=== PATIENT | male | born 1940 | race Caucasian/White ===

== ENCOUNTER 2016-10-13 08:52 | Inpatient (IN) | payer OTHER, MEDICARE ==
[2016-10-09 10:16] LABS: HEMOGLOBIN 14.3 gm/dL (14.0-18.0); MCH 35.2 pg (26.0-34.0); MCHC 34.8 g/dL (28.0-37.0); MCV 101.2 fL (80.0-100.0); RBC 4.05 mil/uL (4.50-6.00); RDW 13.8 % (10.5-14.5); WBC 3.3 thou/uL (4.0-11.0)
[2016-10-09 10:20] LABS: URINE BILIRUBIN NEGATIVE (Negative); URINE BLOOD NEGATIVE (Negative); URINE COLOR YELLOW; URINE GLUCOSE-RANDOM* NEGATIVE (Negative); URINE KETONES TRACE (Negative); URINE LEUKOCYTES-REFLEX NEGATIVE (Negative); URINE PROTEIN (DIPSTICK) NEGATIVE (Negative); URINE SPECIFIC GRAVITY 1.025 (1.003-1.035); URINE UROBILINOGEN 0.2 E.U./dl (0.2-1.0)
[2016-10-09 10:40] LABS: APTT 27.6 Seconds (24.5-32.8); PROTIME 10.1 Seconds (9.3-11.4)
[2016-10-09 10:41] LABS: CREATININE 0.8 mg/dL (0.6-1.3); POTASSIUM 3.9 mmol/L (3.5-5.1); TOTAL BILIRUBIN 0.5 mg/dL (<0.1-1.0); TOTAL PROTEIN 7.5 g/dL (6.4-8.2)
[~2016-10-13] VITALS: Ht 177.8 cm; Wt 84.8 kg
--- NOTE | ~2016-10-13 | S ---
[facility] [place] [address] SURGICAL PATH RPT PROCEDURE Name: SWAPNA WILSON Room #: 246-P DIS IN M.R.#: [id number] Admission: 10/14/16 Date of : 38 Discharge: 10/15/16 Report #: [id number] Path Case #: [id number] PATHOLOGY REPORT COLLECTION DATE: 10/14/2016 RECEIVED DATE: 10/14/2016 SUBMITTING PHYS: Dr. Swapna Escobedo OTHER PHYS: Dr. Julio De Guzman SPECIMEN(S) RECEIVED: A.Left carotid artery plaque * * * * * * * * * * * * FINAL DIAGNOSIS: Left carotid artery plaque: - Calcific atherosclerotic material, compatible with plaque. (IUV:csd; d/t: 10/16/2016) PATHOLOGIST: Eli Francois M.D. REPORT ELECTRONICALLY SIGNED BY: Eli Francois M.D. DATE/TIME: 10/16/2016 13:23 * * * * * * * * * * * * GROSS PATHOLOGY: The specimen is received in formalin labeled "Swapna Wilson, left carotid artery plaque". Received are multiple segments of white-alva rubbery tissue with focal areas of calcification measuring 1.8 x 1.8 x 0.5 cm in aggregate dimensions. The specimen is submitted representatively in cassette A1, following light decalcification. (CAA; 10/15/2016) CLINICAL HISTORY: Carotid artery stenosis INITIAL CPT CODE(S): A; 29683 Professional services performed by [facility] at [facility] [address] [place] [address] Technical services performed by [facility] at [address] [place] [id number]. [facility] [address] [place] [address] SURGICAL PATH RPT PROCEDURE Name: SWAPNA WILSON Room #: 246-P [facility] IN M.R.#: [id number] Admission: 10/14/16 Date of : 38 Discharge: 10/15/16 Report #: [id number] Path Case #: [id number] [address] PHONE: [phone] DIRECTOR: Cam Oliva M.D. * * * END OF REPORT * * *
--- NOTE | ~2016-10-13 | O ---
[facility] [place] [address] OPERATIVE REPORT Name: SWAPNA FARRELL Room #: 246-P [facility] IN M.R.#: [id number] Admission: 10/14/16 Attend Phys: Swapna Escobedo MD Discharge: 10/15/16 Date of : 39 Report #: [id number] THIS REPORT FOR: //name// CC: Julio Escobedo PREOPERATIVE DIAGNOSIS: Left carotid artery stenosis. POSTOPERATIVE DIAGNOSIS: Left carotid artery stenosis. OPERATION: Left carotid endarterectomy with patch closure. SURGEON: Swapna Escobedo M.D. REGULATORY INTERNSHIP: Maged. ANESTHESIA: General. INDICATIONS: The patient is a 76-year-old with 80% left internal carotid stenosis. This is a lesion at the bifurcation with a deep ulceration. The patient has a similar stenosis on the opposite side, similar and the fact that it is 80%, but it is located higher in the internal carotid, neither one of these lesions are asymptomatic at this time. FINDINGS AND TECHNIQUE: After general anesthesia was established, an oblique left neck incision was made. Common facial vein was divided. Common internal and external carotid arteries were identified and controlled, 10,000 units of heparin were given. Continuous electroencephalographic monitoring was performed during the operation. When the carotid vessels were occluded, there was some unilateral slowing; therefore, the carotid arteriotomy was made and an Inahara-Regalado shunt was placed. When the shunt was in place and flow reestablished through it, the EEG changes improved. The endarterectomy was performed without creating a distal flap. Neointima was inspected and all loose debris was removed. Tacking sutures were placed at the transition zone. The endarterectomy was closed with bovine pericardial patch and running Prolene. Prior to finishing the closure, the carotid vessels were backbled and the artery was irrigated with heparinized saline. Flow was established first through the external, then the internal carotid artery. When hemostasis was satisfactory, Protamine was given to reverse the heparin. Wound was irrigated with antibiotic solution. Vince drain was brought out through the bottom pole of the incision. The wound was closed in layers with [facility] [address] [place] [address] OPERATIVE REPORT Name: SWAPNA FARRELL Room #: 246-P [facility] IN M.R.#: [id number] Admission: 10/14/16 Attend Phys: Swapna Escobedo MD Discharge: 10/15/16 Date of : 39 Report #: [id number] Vicryl for the platysma and running Monocryl for the subcuticular layer, dressing was applied. The patient was taken to the recovery area in good condition where his neurologic progress was monitored. All counts reported as correct. By: 12 2106 Swapna Escobedo MD /nt
--- NOTE | ~2016-10-13 | H ---
[facility] [place] [address] HISTORY AND PHYSICAL Name: SWAPNA FARRELL Room #: 246-P [facility] IN M.R.#: [id number] Admission: 10/14/16 Attend Phys: Swapna Escobedo MD Discharge: 10/15/16 Date of : 39 Report #: [id number] THIS REPORT FOR: //name// For History and Physical, please see office documentation/handwritten note in the patient's medical record. By: 0000 1450 Swapna Escobedo MD /nt
[~2016-10-13 08:52] MED LIST: ALTACE10 M1 PO; ALTACE5 M1 PO; ASPIR 8181 MG PO; ASPIRIN PO; BAL B-1001 EACH PO; BYSTOLIC2.5 MG PO; CADUET 10 MG-81 EACH PO; COZAAR 25 MG TA25 M2 PO; LIALDA1.2 GM PO; LIPITOR80 MG PO; MULTI-VITAMIN1 EAC1 PO; MULTIPLE VITAM1 EAC3 PO; MULTIVITAMINS PO; NORVASC10 MG PO; NORVASC5 MG PO; PLAVIX 75 MG TA75 M1 PO; PLAVIX 75 MG TA75 MG PO; RANEXA 500 MG500 M1 PO; RANEXA1000 MG PO; RANEXA500 MG PO; VITAMIN B PO; VITAMIN B-150 MG PO; ZETIA10 MG PO
[2016-10-15 05:38] LABS: HEMATOCRIT 35.4 % (42.0-52.0); HEMOGLOBIN 12.4 gm/dL (14.0-18.0); MCH 35.8 pg (26.0-34.0); MCV 102.4 fL (80.0-100.0); RBC 3.46 mil/uL (4.50-6.00); RDW 13.8 % (10.5-14.5); WBC 5.8 thou/uL (4.0-11.0)
[2016-10-15 05:53] LABS: CALCIUM 8.3 mg/dL (8.5-10.1); CREATININE 0.8 mg/dL (0.6-1.3)
== END 2016-10-15 14:00 | disposition home or self-care (01) | DRG 39 ==
LOC: PRE 08:52 → OR 13:32 → EDSTATUS 13:33 → PRE 13:35 → ICU 10-14 05:17 → TBA 10-14 05:17 → PRE 10-14 08:14 → ICU 10-14 15:02
PROVIDERS: Physician Assistant; Surgery Vascular Surgery
PROC: 03CL0ZZ Extirpation of Matter from Left Internal Carotid Artery, Open Approach (ICD-10-PCS; principal; 2016-10-14)
PROC: 03HY33Z Insertion of Infusion Device into Upper Artery, Percutaneous Approach (ICD-10-PCS; 2016-10-14)
DX: I65.22 Occlusion and stenosis of left carotid artery (principal); I25.10 Atherosclerotic heart disease of native coronary artery without angina pectoris; I10 Essential (primary) hypertension; I25.5 Ischemic cardiomyopathy; Z79.82 Long term (current) use of aspirin; Z79.899 Other long term (current) drug therapy; Z88.8 Allergy status to other drugs, medicaments and biological substances
CPT/HCPCS: 10204; 48888; 50010; 50101; 50386; 50417; 50455; 51301; 51471; 51751; 52279; 54118; 56524; 56526; 56528; 56534; 62110; 62900; 65020; 65040; 65043; 70005

== ENCOUNTER 2016-12-25 14:30 | Inpatient (IN) | payer OTHER, MEDICARE ==
[~2016-12-25] VITALS: Ht 177.8 cm; Wt 83.0 kg
--- NOTE | ~2016-12-25 | O ---
[facility] [place] [address] OPERATIVE REPORT Name: BUDCHAYITO Room #: 150-6 ADM IN M.R.#: [id number] Admission: 01/01/17 Attend Phys: Swapna Escobedo MD Discharge: Date of : 39 Report #: [id number] THIS REPORT FOR: //name// CC: Julio Escobedo DATE OF SERVICE: 01/01/2017 PREOPERATIVE DIAGNOSIS: Right carotid artery stenosis. POSTOPERATIVE DIAGNOSIS: Right carotid artery stenosis. OPERATION: Right carotid endarterectomy with patch closure. SURGEON: Swapna Escobedo MD BELLMAN: Maged. ANESTHESIA: General. INDICATIONS: The patient is a 76-year-old with 80% right internal carotid stenosis. The patient also had an 80-90% left carotid stenosis. This was treated in October of this year. The patient had done well after that surgery and now appears for elective treatment of this severe, but asymptomatic stenosis. FINDINGS AND TECHNIQUE: After general anesthesia was established, an oblique right neck incision was made. Common internal and external carotid arteries were identified and controlled. 10,000 units of heparin were given. Continuous electroencephalographic monitoring was performed. When the carotid vessels were occluded, there was slowing in the right side, this was at the time when the pressure is relatively low. Pressure was elevated and we clamped again and changes were less dramatic. The arteriotomy was made. Endarterectomy was performed without creating a distal flap. Neointima was inspected and all loose debris was removed. Tacking sutures were placed at the transition zone. When the endarterectomy was felt to be satisfactory, the arteriotomy was closed with running Prolene and a thin walled pericardial patch. Prior to finishing the closure, the carotid vessels were backbled and the artery was irrigated with heparinized saline. Flow was established first through the external, then the internal carotid artery. Protamine was given to reverse the heparin. Hemostasis was satisfactory. The wound was irrigated with antibiotic solution and a drain was brought out through [facility] [address] [place] [address] OPERATIVE REPORT Name: SWAPNA FARRELL Room #: 150-6 [facility] IN ..#: [id number] Admission: 01/01/17 Attend Phys: Swapna Escobedo MD Discharge: Date of : 39 Report #: [id number] the bottom pole of the incision and the wound was closed in the usual fashion. The patient was taken to the recovery area where his neurologic progress was monitored. All counts were reported as correct. At the end of the case, the EKG had resumed a normal symmetric appearance. By: 1412 1510 Swapna Escobedo MD /nt
--- NOTE | ~2016-12-25 | S ---
[facility] [place] [address] SURGICAL PATH RPT PROCEDURE Name: SWAPNA WILSON Room #: 242-P DIS IN M.R.#: [id number] Admission: 01/01/17 Date of : 39 Discharge: 01/02/17 Report #: [id number] Path Case #: [id number] PATHOLOGY REPORT COLLECTION DATE: 01/01/2017 RECEIVED DATE: 01/01/2017 SUBMITTING PHYS: Dr. Swapna Escobedo OTHER PHYS: Dr. Julio De Guzman SPECIMEN(S) RECEIVED: A.Right carotid plaque * * * * * * * * * * * * FINAL DIAGNOSIS: Right carotid plaque, removal: - Calcific atherosclerosis along with myxoid changes. (IUV:mml; d/t: 01/05/2017) PATHOLOGIST: Eli Francois M.D. REPORT ELECTRONICALLY SIGNED BY: Eli Francois M.D. DATE/TIME: 01/05/2017 16:39 * * * * * * * * * * * * GROSS PATHOLOGY: The specimen is received in formalin labeled "Swapna Wilson, right carotid plaque". Received is a tubular segment of partially calcified light alva rubbery tissue measuring 3.8 cm in length and ranging in diameter from 0.5 to 1.1 cm. The specimen is submitted representatively in cassette A1, following decalcification. (CAA; 01/02/2017) CLINICAL HISTORY: Carotid stenosis INITIAL CPT CODE(S): A; 12428, 16463 Professional services performed by [facility] at [facility] [address], [place] [address] Technical services performed by [facility] at [address] [place] [address]. [facility] [address] [place] [address] SURGICAL PATH RPT PROCEDURE Name: SWAPNA WILSON Room #: 242-P [facility] IN M.R.#: [id number] Admission: 01/01/17 Date of : 39 Discharge: 01/02/17 Report #: [id number] Path Case #: [id number] [address] PHONE: [phone] DIRECTOR: Cam Oliva M.D. * * * END OF REPORT * * *
[2017-01-01] VITALS (7 sets, daily range): BP systolic 101–136; BP diastolic 40–69
[2017-01-01 08:01] LABS: HEMATOCRIT 40.6 % (42.0-52.0); HEMOGLOBIN 14.3 gm/dL (14.0-18.0); MCH 35.7 pg (26.0-34.0); MCHC 35.2 g/dL (28.0-37.0); MCV 101.3 fL (80.0-100.0); RBC 4.01 mil/uL (4.50-6.00); RDW 14.2 % (10.5-14.5)
[2017-01-01 08:09] LABS: CALCIUM 8.9 mg/dL (8.5-10.1); CREATININE 1.1 mg/dL (0.7-1.3); POTASSIUM 4.1 mmol/L (3.5-5.1)
[2017-01-01 08:14] LABS: APTT 28.9 Seconds (24.5-32.8); PROTIME 10.5 Seconds (9.3-11.4); TOTAL BILIRUBIN 0.8 mg/dL (<0.1-1.0); TOTAL PROTEIN 7.2 g/dL (6.4-8.2)
[2017-01-01 13:24] LABS: URINE BILIRUBIN NEGATIVE (Negative); URINE BLOOD NEGATIVE (Negative); URINE COLOR YELLOW; URINE GLUCOSE-RANDOM* NEGATIVE (Negative); URINE KETONES TRACE (Negative); URINE LEUKOCYTES-REFLEX 1+ (Negative); URINE PROTEIN (DIPSTICK) NEGATIVE (Negative); URINE SPECIFIC GRAVITY 1.025 (1.003-1.035); URINE UROBILINOGEN 0.2 E.U./dl (0.2-1.0)
[2017-01-01 13:31] LABS: SQUAMOUS None Seen /LPF (0-3); URINE WBC-REFLEX 6-15 Few /HPF (0-5)
[2017-01-01 13:32] LABS: CASTS None Seen /LPF (None Seen); CRYSTALS None Seen /LPF (None Seen); URINE RBC None Seen /HPF (0-2)
[2017-01-01 19:05] LABS: HEMATOCRIT 37.6 % (42.0-52.0); HEMOGLOBIN 13.1 gm/dL (14.0-18.0); MCH 35.6 pg (26.0-34.0); MCHC 34.8 g/dL (28.0-37.0); MCV 102.2 fL (80.0-100.0); RBC 3.68 mil/uL (4.50-6.00); RDW 14.1 % (10.5-14.5); WBC 8.6 thou/uL (4.0-11.0)
[2017-01-02] VITALS (32 sets, daily range): BP systolic 86–133; BP diastolic 45–67
[2017-01-02 05:24] LABS: HEMATOCRIT 34.7 % (42.0-52.0); HEMOGLOBIN 12.2 gm/dL (14.0-18.0); MCH 35.4 pg (26.0-34.0); MCHC 35.1 g/dL (28.0-37.0); MCV 101.1 fL (80.0-100.0); RBC 3.44 mil/uL (4.50-6.00); RDW 13.9 % (10.5-14.5); WBC 6.5 thou/uL (4.0-11.0)
[2017-01-02 05:30] LABS: CALCIUM 8.3 mg/dL (8.5-10.1); CREATININE 0.8 mg/dL (0.7-1.3); POTASSIUM 4.3 mmol/L (3.5-5.1)
== END 2017-01-02 15:25 | disposition home or self-care (01) | DRG 38 ==
LOC: PRE 14:30 → TBA 01-01 06:16 → ICU 01-01 06:16 → PRE 01-01 09:47 → ICU 01-01 17:29
PROVIDERS: Physician Assistant; Surgery Vascular Surgery
PROC: 03CK0ZZ Extirpation of Matter from Right Internal Carotid Artery, Open Approach (ICD-10-PCS; principal; 2017-01-01)
PROC: 03UK0KZ Supplement Right Internal Carotid Artery with Nonautologous Tissue Substitute, Open Approach (ICD-10-PCS; principal; 2017-01-01)
DX: I65.21 Occlusion and stenosis of right carotid artery (principal); N17.9 Acute kidney failure, unspecified; I25.10 Atherosclerotic heart disease of native coronary artery without angina pectoris; I10 Essential (primary) hypertension; Z95.1 Presence of aortocoronary bypass graft; Z88.8 Allergy status to other drugs, medicaments and biological substances; Z98.62 Peripheral vascular angioplasty status; Z79.82 Long term (current) use of aspirin; Z79.899 Other long term (current) drug therapy
CPT/HCPCS: 10078; 48888; 50010; 50101; 50386; 50417; 50455; 51301; 51751; 52279; 54118; 56524; 56526; 56528; 56534; 62110; 62900; 65020; 65040; 65043; 70005

== ENCOUNTER → 2018-07-23 | Outpatient (CLI) | payer OTHER, MEDICARE ==
[~2018-07-23] VITALS: Ht 177.8 cm; Wt 79.4 kg
[~2018-07-23] MED LIST changes: +BYSTOLIC 5 MG5 M1 PO
--- NOTE | ~2018-07-23 | CATHLAB ---
[facility] [place] [address] INVASIVE PROCEDURE REPORT Name: BUDCHAYITO Room #: REG Warren#: [id number] Admission: 07/23/18 Attend Phys: Gerardo Howell, Discharge: Date of : 39 Date of Service: 07/23/18 1725 Report #: [id number] THIS REPORT FOR: //name// APPROVED REPORT Study performed: 07/23/2018 08:34:58 Patient Details Patient Status: Out-Patient Room #: The patient is a 77 year-old male Event Personnel Gerardo Howell Collections Attorney, Yesenia Rosa RN RN, Maria L Rasmussen Sandifer, David Monitor Procedures Performed Left Heart Cath Coronaries, Bypass Grafts 3366232 LHCCORCABG Supravalvular Aortography Injection 4008966 ISVA , Aortogram Indication Chest pain Procedure Narrative The Right Groin^ was infiltrated with 1% Lidocaine subcutaneous anesthesia. A PINNACLE 6FR Sheath #[id number] sheath was inserted into the RFA^. Coronary angiography was performed using coronary diagnostic catheters. The right coronary system was accessed and visualized with a JR4 catheter. The left coronary system was accessed and visualized with a JL4 catheter. The left ventricle was accessed and visualized with a PI6FR PIGTAIL 145 ANGLED #[id number] catheter. Left ventricular/Aortic Valve gradient assessed via catheter pullback. Left ventriculogram was performed in 30 degree projection. An aortogram of the ascending aorta was performed. Closure device was deployed with a Fr . Hemostasis was obtained with manual pressure following sheath removal without any complications. There was no hematoma. Intraoperative Conscious Sedation Sedation start time: 9.15 Case end Time: 10.15 Fentanyl 50 mcg Versed 2 mg Dose: DAP 6560 cGycm2 702 mGy Contrast Type and Amount: Omnipaque 170 ml [facility] [place] [place] [address] INVASIVE PROCEDURE REPORT Name: SWAPNA FARRELL Room #: BERYL Kelley#: [id number] Admission: 07/23/18 Attend Phys: Gerardo Howell, Discharge: Date of : 39 Date of Service: 07/23/18 1725 Report #: [id number] Hemodynamics The aortic pressure is 158/67 mmHg with a mean of 78 mmHg. The left ventricular pressure is 173/9 mmHg with a mean of mmHg. The left ventricular end diastolic pressure is 20 mmHg. There was no gradient across the aortic valve upon pullback. Pullback from the left ventricle to the aorta revealed no gradient across the aortic valve. Conclusion #1 normal left ventricular size with ejection fraction lower limits of normal EF 50%. Mild hypokinesis of the inferior base #2 left main is large giving rise to the circumflex artery the LAD occludes just off of the left main. There is a 20% mid left main lesion #3 LAD occluded ostially off of the left main #4 [place] circumflex in the AV groove is patent. And proximal lesion after a previously placed stent filling distal OM. The proximal and mid OM's are occluded #5 HINES to LAD is intact the HINES graft is widely patent the anastomosis is mild disease. Diffuse disease noted in the LAD is retrograde filling diagonal and septal system. No occlusive disease for intervention #6 [place] right coronary artery occluded #7 SVG to PDA occluded #8 SVG to OM eccentric proximal 50-60% lesion focal and then some degenerative valvular filling defects no occlusive disease filling a relatively small OM branch. No indication for intervention This vein graft may give rise to a small diagonal branch may of been a sequential graft. #9 supravalvular aortogram was performed. There appears to be at least a moderate ostial narrowing of the subclavian vessel which gives rise to the HINES. Will obtain noninvasive Doppler data. Recommendations and plan continue aggressive risk factor modification. We will review the Doppler on the ostium of the subclavian. Possible intervention. I don't see evidence for coronary intervention to be beneficial here. <ELECTRONICALLY SIGNED> By: Gerardo Howell MD, FACC 07/23/181724 24 24 Gerardo Howell MD, FACC /INF
[2018-07-23 08:30] LABS: HEMOGLOBIN 14.2 gm/dL (14.0-18.0); MCH 37.2 pg (26.0-34.0); MCHC 34.7 g/dL (28.0-37.0); MCV 107.1 fL (80.0-100.0); RBC 3.82 mil/uL (4.50-6.00); RDW 15.2 % (10.5-14.5); WBC 5.3 thou/uL (4.0-11.0)
[2018-07-23 08:37] LABS: CALCIUM 9.6 mg/dL (8.5-10.1); POTASSIUM 4.6 mmol/L (3.5-5.1)
== END | disposition home or self-care (01) ==
LOC: CATH 08:06
PROVIDERS: Internal Medicine Cardiovascular Disease
DX: I25.10 Atherosclerotic heart disease of native coronary artery without angina pectoris (principal); I65.29 Occlusion and stenosis of unspecified carotid artery; I10 Essential (primary) hypertension; H91.8X3 Other specified hearing loss, bilateral; E78.5 Hyperlipidemia, unspecified; Z86.79 Personal history of other diseases of the circulatory system; Z95.1 Presence of aortocoronary bypass graft; Z88.8 Allergy status to other drugs, medicaments and biological substances; Z79.899 Other long term (current) drug therapy; Z98.890 Other specified postprocedural states; Z95.5 Presence of coronary angioplasty implant and graft; Z98.42 Cataract extraction status, left eye; Z98.41 Cataract extraction status, right eye; Z87.19 Personal history of other diseases of the digestive system; Z79.01 Long term (current) use of anticoagulants; Z87.891 Personal history of nicotine dependence

== ENCOUNTER → 2019-08-18 | Outpatient (CLI) | payer OTHER, MEDICARE | LOC: SJCVC 14:43 | DX: I45.2 Bifascicular block (principal); R00.1 Bradycardia, unspecified; I25.810 Atherosclerosis of coronary artery bypass graft(s) without angina pectoris; E78.00 Pure hypercholesterolemia, unspecified; I42.9 Cardiomyopathy, unspecified; I10 Essential (primary) hypertension; I35.0 Nonrheumatic aortic (valve) stenosis; Z95.1 Presence of aortocoronary bypass graft; Z79.899 Other long term (current) drug therapy; Z87.891 Personal history of nicotine dependence ==

== ENCOUNTER → 2019-11-02 | Outpatient (CLI) | payer OTHER, MEDICARE | LOC: SJCVCIMAG 08:03 | DX: I73.9 Peripheral vascular disease, unspecified (principal); I25.119 Atherosclerotic heart disease of native coronary artery with unspecified angina pectoris; I77.1 Stricture of artery; E78.00 Pure hypercholesterolemia, unspecified; I10 Essential (primary) hypertension; K55.1 Chronic vascular disorders of intestine; Z95.5 Presence of coronary angioplasty implant and graft; Z95.1 Presence of aortocoronary bypass graft; Z79.899 Other long term (current) drug therapy; Z87.891 Personal history of nicotine dependence ==

== ENCOUNTER → 2019-11-08 | Outpatient (CLI) | payer OTHER, MEDICARE ==
[~2019-11-08] VITALS: Ht 177.8 cm; Wt 77.1 kg
[~2019-11-08] MED LIST changes: +MERCAPTOPURINE50 MG PO
[2019-11-08 09:52] LABS: HEMATOCRIT 38.3 % (42.0-52.0); HEMOGLOBIN 13.2 gm/dL (14.0-18.0); MCH 36.6 pg (26.0-34.0); MCHC 34.4 g/dL (28.0-37.0); MCV 106.2 fL (80.0-100.0); RBC 3.6 mil/uL (4.50-6.00); RDW 16.3 % (10.5-14.5); WBC 5.6 thou/uL (4.0-11.0)
[2019-11-08 09:54] VITALS: BP 180/67
[2019-11-08 10:10] LABS: CALCIUM 9.4 mg/dL (8.5-10.1); POTASSIUM 4.2 mmol/L (3.5-5.1)
--- NOTE | 2019-11-10 16:52 | CATHLAB ---
[facility] [place] [address] INVASIVE PROCEDURE REPORT Name: BUDCHAYITO Room #: REG ZIYAD ArredondoMicaela#: [id number] Admission: 11/08/19 Attend Phys: Gerardo Howell MD, Discharge: Date of : 39 Report #: [id number] THIS REPORT FOR: cc: Julio De Guzman James A. DO Mancuso, Gerald M. MD [facility] ~ APPROVED REPORT Study performed: 11/08/2019 13:13:32 Patient Details Patient Status: Out-Patient Room #: The patient is a 79 year-old male Event Personnel Gerardo Howell Finish Specialist, Cassi Mclaughlin RN RN, Domingo Hernandez RTR Scrub, Domingo Hernandez RTR Scrub Procedures Performed Art Access - R femoral artery* Left Heart Cath Coronaries, Bypass Grafts [id number] LHCCORCABG Hemostasis w/ Mynx Indication Chest pain Procedure Narrative A SHEATH BRITE-TIP 6F X 11CM (619561) sheath was inserted into the RFA^. Coronary angiography was performed using coronary diagnostic catheters. The right coronary system was accessed and visualized with a JR4 catheter. The left coronary system was accessed and visualized with a JL5 catheter. The left ventricle was accessed and visualized with a pigtail catheter. Left ventricular/Aortic Valve gradient assessed via catheter pullback. Left ventriculogram was performed in 30 degree projection. Closure device was deployed with a 6 Fr MYNXGRIP 6/7F #[id number]. The patient tolerated the procedure well and there were no complications associated with the procedure. There was no hematoma. Intraoperative Conscious Sedation Sedation start time: 11:19 Case end Time: 14:15 Fentanyl 100 mcg Versed 2.0 mg Conscious sedation is a total for lower extremity runoff and left heart cath procedures. [facility] [address] [place] [address] INVASIVE PROCEDURE REPORT Name: SWAPNA FARRELL Room #: BERYL Kelley#: [id number] Admission: 11/08/19 Attend Phys: Gerardo Howell, Discharge: Date of : 39 Report #: [id number] Fluoro time and dose is a total for lower extremity runoff and left heart cath procedures. Contrast is a total for lower extremity runoff and left heart cath procedures. Omnipaque - 110ml Fluoro Time: 25.44 minutes Dose: DAP 37463.70 cGycm2 2108 mGy Contrast Type and Amount: Visipaque 176 ml Hemodynamics The aortic pressure is 163/58 mmHg with a mean of 99 mmHg. The left ventricular pressure is 167/3 mmHg with a mean of mmHg. The left ventricular end diastolic pressure is 21 mmHg. PCI Technique Lesion Percutaneous coronary intervention was performed on the Prox popliteal. PCI Technique Lesion 2 Percutaneous Coronary Intervention was performed on the Ostial sup femoral. Conclusion #1. Normal left jugular size with subtle inferior basilar hypokinesis EF 50 to 55% #2 a HINES to LAD is intact with mild irregularities 30 to 40% anastomotic lesion at the LAD insertion with diffuse distal disease in a small vessel. Retrograde filling of a small diagonal system is noted. The LAD does wrap the apex. #3 [place] right coronary artery occluded #4 SVG to PDA occluded #5 multiple eccentric calcified lesions in the proximal and mid vein graft to OM1 OM 2 briskly filling relatively small marginal system. #6 the left main is mildly disease the LAD is occluded off the left main. #7 circumflex OM the first and second OM branches are occluded 3040% irregularities in the proximal circumflex calcified this fills a distal circumflex and an AV groove may be consistent with a anatomically codominant system. No occlusive disease with exception of the occlusion of the first 2 OM's. This fills a portion of the inferior wall. Recommendations and plan: Continue aggressive risk factor modification. There is progression in the vein graft to OM1 and OM 2. I would like and will obtain nuclear correlation in the next few [address] [address] INVASIVE PROCEDURE REPORT Name: SWAPNA FARRELL Room #: REG SAAD Kelley#: [id number] Admission: 11/08/19 Attend Phys: Gerardo Howell, Discharge: Date of : 39 Report #: [id number] months to follow this current anatomy. Patient status post peripheral vascular intervention see Dr. Carreon's dictation from today. <ELECTRONICALLY SIGNED> By: Gerardo Howell MD, FACC 11/10/191649 49 49 Gerardo Howell MD, FACC /INF
--- NOTE | 2019-11-11 12:25 | EKG ---
[facility] [place] [address] ELECTROCARDIOGRAM REPORT Name: SWAPNA FARRELL [id number] Admission: 11/08/19 Attend Phys: Gerardo Howell MD, Discharge: Date of : 39 Report #: [id number] THIS REPORT FOR: cc: Julio De Guzman James A. DO Lundgren, Craig H. MD [facility] ~ THIS REPORT FOR: //name// 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 Tight: VAL : 1940 Requested By: Gerardo Howell Order Number: [id number] MD: Gary Hayes Measurements Intervals [place] Rate: 58 P: 30 [place]: 223 QRS: -54 QRSD: 156 T: 62 QT: 534 QTc: 525 Interpretive Statements Sinus rhythm Atrial premature complexes Prolonged [place] interval RBBB and LAFB Compared to ECG 11/20/2009 08:23:30 Atrial premature complex(es) now present First degree AV block now present Left anterior fascicular block now present Right bundle-branch block now present Sinus bradycardia no longer present Electronically Signed On 11-08-2019 16:22:42 CDT by Gary Hayes [email or web address] <ELECTRONICALLY SIGNED> By: Gary Hayes MD, [facility] 11/08/19 1622 Gary Hayes MD, [facility] /EPI
== END | disposition home or self-care (01) ==
LOC: CATH 09:11
PROVIDERS: Internal Medicine Cardiovascular Disease
DX: R07.9 Chest pain, unspecified (principal); I25.810 Atherosclerosis of coronary artery bypass graft(s) without angina pectoris; I70.212 Atherosclerosis of native arteries of extremities with intermittent claudication, left leg; I70.248 Atherosclerosis of native arteries of left leg with ulceration of other part of lower leg; L97.909 Non-pressure chronic ulcer of unspecified part of unspecified lower leg with unspecified severity; K55.1 Chronic vascular disorders of intestine; I70.1 Atherosclerosis of renal artery; I10 Essential (primary) hypertension; I25.10 Atherosclerotic heart disease of native coronary artery without angina pectoris; E78.5 Hyperlipidemia, unspecified; I25.2 Old myocardial infarction; Z98.890 Other specified postprocedural states; Z79.899 Other long term (current) drug therapy; Z98.41 Cataract extraction status, right eye; Z87.891 Personal history of nicotine dependence; Z98.42 Cataract extraction status, left eye; Z88.8 Allergy status to other drugs, medicaments and biological substances

== ENCOUNTER → 2020-02-09 | Outpatient (CLI) | payer OTHER, MEDICARE | LOC: SJCVCIMAG 10:13 | PROVIDERS: ATTEND Internal Medicine Cardiovascular Disease | DX: I65.23 Occlusion and stenosis of bilateral carotid arteries (principal); I73.9 Peripheral vascular disease, unspecified; I49.3 Ventricular premature depolarization; I49.1 Atrial premature depolarization; I35.0 Nonrheumatic aortic (valve) stenosis; I25.118 Atherosclerotic heart disease of native coronary artery with other forms of angina pectoris; E78.00 Pure hypercholesterolemia, unspecified; K55.1 Chronic vascular disorders of intestine; Z95.1 Presence of aortocoronary bypass graft; Z79.899 Other long term (current) drug therapy; Z87.891 Personal history of nicotine dependence ==

== ENCOUNTER → 2020-05-16 | Outpatient (CLI) | payer OTHER, MEDICARE | LOC: SJCVCIMAG 08:51 | PROVIDERS: ATTEND Internal Medicine Cardiovascular Disease | DX: I08.2 Rheumatic disorders of both aortic and tricuspid valves (principal); R94.31 Abnormal electrocardiogram [ECG] [EKG]; I44.7 Left bundle-branch block, unspecified; I25.110 Atherosclerotic heart disease of native coronary artery with unstable angina pectoris; I10 Essential (primary) hypertension; E78.00 Pure hypercholesterolemia, unspecified; I73.9 Peripheral vascular disease, unspecified; K51.919 Ulcerative colitis, unspecified with unspecified complications; K55.1 Chronic vascular disorders of intestine; I77.9 Disorder of arteries and arterioles, unspecified; I25.10 Atherosclerotic heart disease of native coronary artery without angina pectoris; Z95.1 Presence of aortocoronary bypass graft; Z79.899 Other long term (current) drug therapy; Z87.891 Personal history of nicotine dependence ==

== ENCOUNTER → 2020-05-29 | Outpatient (CLI) | payer OTHER, MEDICARE ==
[~2020-05-29] VITALS: Ht 177.8 cm; Wt 74.8 kg
[2020-05-29 06:58] VITALS: BP 133/52
--- NOTE | 2020-05-29 12:49 | CATHLAB ---
[facility] [place] [address] INVASIVE PROCEDURE REPORT Name: SWAPNA FARRELL Room #: REG ZIYAD ArredondoMicaela#: [id number] Admission: 05/29/20 Attend Phys: Gerardo Howell MD, Discharge: Date of : 39 Report #: [id number] THIS REPORT FOR: cc: Julio De Guzman James A. DO Mancuso, Gerald M. MD [facility] ~ APPROVED REPORT Study performed: 05/29/2020 07:36:13 Patient Details Patient Status: Out-Patient Room #: The patient is a 79 year-old male Event Personnel Gerardo Howell Supervisor Rides, Jeni Adhikari RTR Monitor, Tanya Adan RN RN, Sander Garza RTR Scrub, Monik Dee RTR, NIGHT COURT MAGISTRATE Scrub, Cassi Bower RN painting manager Performed Art Access - R femoral artery* Left Heart Cath Coronaries, Bypass Grafts 8931491 LHCCORCABG Hemostasis w/ Mynx 53852 Initial Mod Sed Same Phys/QHP Gr5y 839235 87431 Mod Sed Same Phys/QHP Ea 827519 Procedure Narrative The Right Groin^ was infiltrated with 1% Lidocaine subcutaneous anesthesia. A PINNACLE 6FR Sheath #925061 sheath was inserted into the RFA^. Coronary angiography was performed using coronary diagnostic catheters. The right coronary system was accessed and visualized with a JR4 catheter. Closure device was deployed with a Fr MYNX CONTROL 6F/7F L#[id number]. The patient tolerated the procedure well and there were no complications associated with the procedure. There was no hematoma. Intraoperative Conscious Sedation Sedation start time: 8:34 Case end Time: 9:49 Fentanyl 75 mcg Versed 1 mg Fluoro Time: 17.80 minutes Dose: DAP 61240.70 cGycm2 1888 mGy Contrast Type and Amount: Omnipaque 120 ml [facility] [place] [address] INVASIVE PROCEDURE REPORT Name: SWAPNA FARRELL Room #: REG [facility]#: [id number] Admission: 05/29/20 Attend Phys: Gerardo Howell, Discharge: Date of : 39 Report #: [id number] Hemodynamics The aortic pressure is 151/53 mmHg with a mean of 89 mmHg. Conclusion 1. Left main mildly disease giving rise to an occluded dn. #2 the HINES to LAD is widely patent it fills the LAD both distally and retrograde also diagonal system which is mildly diseased. Brisk flow was noted #3 the [place] circumflex OM branches are occluded #4 there is an SVG to the OM1 OM 2. This has corkscrewing calcified proximal lesions and mid lesions also significantly calcified. With a previous stent widely patent and SHASHA grade III flow although may be in encroached upon by these proximal calcified lesions. #5 there was an attempt to cross this proximal graft with these corkscrew calcified lesions unsuccessfully was able to wire this vessel but could not deliver even small balloon. We will continue to treat this medically. #6 the [place] right is occluded #7 the SVG to the PDA is occluded Recommendations and plan: Continue aggressive risk factor modification. <ELECTRONICALLY SIGNED> By: Gerardo Howell MD, FACC 05/29/20 1249 48 1249 Gerardo Howell MD, FACC /INF
== END | disposition home or self-care (01) ==
LOC: CATH 06:23
PROVIDERS: ATTEND Internal Medicine Cardiovascular Disease
DX: I25.810 Atherosclerosis of coronary artery bypass graft(s) without angina pectoris (principal); I10 Essential (primary) hypertension; I25.5 Ischemic cardiomyopathy; I25.2 Old myocardial infarction; E78.5 Hyperlipidemia, unspecified; I73.9 Peripheral vascular disease, unspecified; Z95.1 Presence of aortocoronary bypass graft; Z98.890 Other specified postprocedural states; Z79.899 Other long term (current) drug therapy; Z87.891 Personal history of nicotine dependence; Z98.41 Cataract extraction status, right eye; Z98.42 Cataract extraction status, left eye; Z88.8 Allergy status to other drugs, medicaments and biological substances

== ENCOUNTER → 2020-08-21 | Outpatient (CLI) | payer OTHER, MEDICARE | LOC: SJCVCIMAG 10:19 | PROVIDERS: ATTEND Nuclear Medicine Nuclear Cardiology | DX: R94.31 Abnormal electrocardiogram [ECG] [EKG] (principal); R00.1 Bradycardia, unspecified; I45.4 Nonspecific intraventricular block; I25.119 Atherosclerotic heart disease of native coronary artery with unspecified angina pectoris; I35.0 Nonrheumatic aortic (valve) stenosis; I25.5 Ischemic cardiomyopathy; I73.9 Peripheral vascular disease, unspecified; K55.1 Chronic vascular disorders of intestine; I65.23 Occlusion and stenosis of bilateral carotid arteries; I10 Essential (primary) hypertension; Z95.1 Presence of aortocoronary bypass graft; Z87.891 Personal history of nicotine dependence; Z72.89 Other problems related to lifestyle; Z79.899 Other long term (current) drug therapy ==

== ENCOUNTER 2020-08-27 06:31 | Observation (INO) | payer OTHER, MEDICARE ==
[2020-08-27] VITALS (7 sets, daily range): BP systolic 102–170; BP diastolic 53–90
[~2020-08-27] VITALS: Ht 177.8 cm; Wt 74.8 kg
[2020-08-27] MEDS ORDERED: ASA81BEC PO (07:32)
--- NOTE | 2020-08-27 13:56 | NUR ---
PATIENT ARRIVED AT 1140. PATIENT SETTLED INTO BED WITH HELP OF ADVERTISING DIRECTOR NURSE. LT GROIN ASSESSED PER PROTOCOL AND VS TAKEN PER PROTOCOL. WITH PATIENT AND SHE WAS EDUCATED ON PLAN OF CARE.
--- NOTE | 2020-08-27 14:00 | EKG ---
[address] [place] [address] ELECTROCARDIOGRAM REPORT Name: SWAPNA FARRELL Room #: 209- ADM IN M.R.#: [id number] Admission: 08/27/20 Attend Phys: Sunday Haas MD Discharge: Date of : 39 Report #: [id number] [facility] Test Date: 2020-08-27 Test Time: 13:06:10 Pat Name: SWAPNA FARRELL Department: Room: 209 Gender: M Cement Contractor: vishnu : 1940 Requested By: Sunday Haas Order Number: [id number] : Fred Gutierrez Measurements Intervals [place] Rate: 45 P: 15 [place]: 224 QRS: -45 QRSD: 140 T: 75 QT: 511 QTc: 443 Interpretive Statements Sinus bradycardia Atrial premature complex Borderline prolonged [place] interval Compared to ECG 11/08/2019 09:33:28 Sinus rhythm no longer present Left anterior fascicular block no longer present Right bundle-branch block no longer present Electronically Signed On 08-27-2020 13:59:49 [employer] by Fred Gutierrez [email or web address] <ELECTRONICALLY SIGNED> By: Fred Gutierrez MD, FAC 08/27/20 1359 1306 1306 Fred Gutierrez MD, [facility] /EPI
--- NOTE | 2020-08-27 16:38 | CATHLAB ---
[facility] [place] [address] INVASIVE PROCEDURE REPORT Name: BUDSWAPNA Gutierres Room #: 209-P ADM IN .R.#: [id number] Admission: 08/27/20 Attend Phys: Sunday Haas MD Discharge: Date of : 38 Report #: [id number] THIS REPORT FOR: cc: Julio De Guzman James A. DO Park, Jin S. MD ~ APPROVED REPORT Study performed: 08/27/2020 07:41:43 Patient Details Patient Status: Out-Patient Room #: The patient is a 79 year-old male Event Personnel Sunday Haas Paperhanger Apprentice, Tanya Adan RN RN, Monik Dee RTR, CERTIFIED TEACHER ASSISTANT Monitor, Sabra Travis Scrub Procedures Performed Art Access - L femoral artery* Coronaries Angiography and Bypass Grafts 063449 CORCABG ROSA MARIA Revasc Graft Single OM C9604 SVGREVSING Atherectomy w/wo Plasty Sgl OM 1 [id number] ATHSINGLE Hemostasis w/ Mynx 95387 Initial Mod Sed Same Phys/QHP Gr5y [id number] 75364 Mod Sed Same Phys/QHP Ea 291366 Indication Dyspnea, Unstable angina , Positive stress test, Chest pain Risk Factors Peripheral Vascular Disease, Hypercholesterolemia, Coronary Artery DiseaseHypertension Previous Procedures/Diagnoses Previous CABGPrevious PCI, Previous Vascular Surgery Procedure Narrative The Right Groin^ was infiltrated with 1% Lidocaine subcutaneous anesthesia. A PINNACLE 6FR Sheath #[id number] sheath was inserted into the LFA^. Coronary angiography was performed using coronary diagnostic catheters. The right coronary system was accessed and visualized with a JR4 catheter. The left coronary system was accessed and visualized with a JL4 catheter. Pre-demployment femoral angiogram was performed . Closure device was deployed with a 6 Fr MYNXGRIP 6/7F #[id number]. The patient tolerated the procedure well and there were no [facility] [address] [place] [address] INVASIVE PROCEDURE REPORT Name: SWAPNA FARRELL Room #: 209-P [facility] IN ..#: [id number] Admission: 08/27/20 Attend Phys: Sunday Haas MD Discharge: Date of : 38 Report #: [id number] complications associated with the procedure. There was no hematoma. The HINES was accessed and visualized with the 6F IM. The SVG to OM1/OM2 was accessed and visualized with the 6F LCB. Intraoperative Conscious Sedation Sedation start time: 08:32 Case end Time: 11:22 Fentanyl 200 mcg Versed 3 mg Fluoro Time: 50.42 minutes Dose: DAP 00990.70 cGycm2 4207 mGy Contrast Type and Amount: Omnipaque 315 ml Diagnostic Cath Left Main There is a patent stent in the left main with mild restenosis. LAD There is a total occlusion of the ostial LAD. There is a patent HINES graft with a end-to-side anastomosis to the mid LAD. After the anastomosis, there is both retrograde and antegrade flow in the LAD with mild disease in the distal LAD segment. Diagonal 1 This is filled via retrograde blood flow from the HINES to the LAD. Circumflex There is a patent stent in the ostial LAD. There is moderate disease in the proximal segment. This vessel fills the distal marginals. OM1 This is occluded at the ostium. Right Coronary The RCA is occluded. R PDA The SVG to the PDA is occluded. Left Ventriculography Left Ventriculography was not performed. Ejection Fraction was 50% based off patient's Echocardiogram. Hemodynamics The aortic pressure is 155/62 mmHg with a mean of 90 mmHg. PCI Technique Lesion Percutaneous coronary intervention was performed on the Prox 08/05 of the saphenous vein graft to OM1. The lesion stenosis prior to intervention was 95% with SHASHA 3 flow. A LAUNCHER 6FR AL75 #[id number] Guide Catheter was used to engage the ostium. A Luge Wire .014 x 182CM #[id number] Interventional Guidewire was used to cross the lesion. BALLOON DILATION [facility] [address] [place] [address] INVASIVE PROCEDURE REPORT Name: SWAPNA FARRELL Room #: 209-P [facility] IN M.R.#: [id number] Admission: 08/27/20 Attend Phys: Sunday Haas MD Discharge: Date of : 38 Report #: [id number] A Balloon catheter Euphora RX 2.0 x 15 #[id number] was inserted and inflated up to 14.00atm for 15seconds. A balloon catheter Euphora 1.5 x 12 was inserted and inflated up to 18 artem for 12 seconds STENT DEPLOYMENT A drug-eluting stent RESOLUTE CIPRIANO RX 3.0 X 12 #[id number] was inserted and inflated up to 12atm for 18seconds. The stent was deployed in the proximal segment of the SVG. The stent was postdilated with a 3.0 mm noncompliant balloon, up to 18 artem. POST STENT DEPLOYMENT BALLOON DILATION A Balloon catheter TREK NC RX 3.0 X 8 #[id number] was inserted and inflated up to 18.00atm for 15seconds. A balloon catheter NC Trek RX 2.50 x 12 was inserted and inflated up to 20 artem for 28 seconds. A balloon catheter NC Trek RX 2.75 x 12 was inserted and inflated up to 18 artem for 29 seconds. A balloon catheter NC Trek RX 3.0 x 8 was inserted to post dilate the 3.0 x 12 Resolute Cipriano RX. Inflated up to 20 artem for 21 seconds. Additional Inflation: 18 artem for 15 seconds. Final angiography reveals 10 % stenosis with SHASHA 3 flow. COMMENTS 0.9 Coronary Laser was inserted and 3 runs were performed at 50mj/mm2 for 50 pulses/sec in the proximal SVG to OM1/OM2. 0.9 Coronary Laser was inserted and 3 runs were performed at 50mj/mm2 for 60 pulses/sec in the proximal to mid SVG to OM1/OM2. PCI Technique Lesion 2 Percutaneous Coronary Intervention was performed on the Mid 08/05. A LAUNCHER 6FR AL75 #[id number] Guide Catheter was used to engage the ostium. A Luge Wire .014 x 182CM #[id number] Interventional Guidewire was used to cross the lesion. Balloon Dilation A Balloon catheter Euphora RX 2.0 x 15 #[id number] was inserted and inflated up to 15.00atm for 17seconds. A balloon catheter 2.0 x 12 Euphora RX was inserted and inflated up to 10 artem for 22 seconds Additional inflation: 10 artem for 25 seconds. Additional inflation: 18 artem for 23 seconds. Additional inflation: 18 artem for 21 seconds. Post Stent Deployment Balloon Dilation A Balloon catheter TREK NC RX 2.25 X 12 #[id number] was inserted and inflated up to 16.00atm for 37seconds. Additional Inflation: 18.00atm [facility] [address] [place] [address] INVASIVE PROCEDURE REPORT Name: SWAPNA FARRELL Room #: 209-P [facility] IN ..#: [id number] Admission: 08/27/20 Attend Phys: Sunday Haas MD Discharge: Date of : 38 Report #: [id number] for 20seconds. A balloon catheter 2.5 x 12 NC Trek was inserted and inflated up to 16 artem for 59 seconds. A balloon catheter 2.75 x 12 NC Trek RX was inserted and inflated up to 16 artem for 37 seconds. A balloon catheter 2.5 x 12 NC Trek RX was inserted and inflated up to 18 artem for 34 seconds. Additional inflation: 18 artem for 24 seconds. Additional inflation: 18 artem for 26 seconds. Additional inflation: 18 artem for 34 seconds. Additional inflation: 18 artem for 25 seconds. Final angiography reveals 40 % stenosis with SHASHA 3 flow. Comments There are multiple lesions in the proximal and mid segments of the SVG to OM1. There are patent stents in the latter half of the mid and distal segments of the SVG. The stenotic lesion in the midsegment were dilated with noncompliant balloons. Conclusion 1. Successful laser atherectomy and stent deployment in the proximal stenosis in the SVG to OM1. 2. Laser atherectomy performed and balloon dilatation(noncompliant balloon) in the stenosis just distal to the stent deployment, leaving a residual stenosis of 40%. A stent was not deployed due to moderate residual stenosis after balloon dilation with a NC balloon. 3. Balloon angioplasty with a noncompliant balloon at the lesions in the mid segment of the SVG to OM1, leaving a residual stenosis up to 40%. 4. There is a patent HINES graft to the LAD with retrograde filling of the first diagonal artery. There is also collateral filling of distal marginals. 5. There is a patent stent in the left main/ostial left circumflex, filling the distal marginals. There is a moderate stenosis in the proximal left circumflex segment. 6. There is an occluded SVG to the PDA. 7. Recommend dual antiplatelet therapy and aggressive risk factor management. <ELECTRONICALLY SIGNED> By: Sunday Haas MD 08/27/20 1638 1638 1638 Sunday Haas MD /INF
[2020-08-28 04:45] VITALS: BP 108/53
[2020-08-28 05:37] LABS: HEMATOCRIT 30.8 % (42.0-52.0); HEMOGLOBIN 10.4 gm/dL (14.0-18.0); MCH 38.1 pg (26.0-34.0); MCHC 33.9 g/dL (28.0-37.0); MCV 112.3 fL (80.0-100.0); RBC 2.74 mil/uL (4.50-6.00); RDW 16.5 % (10.5-14.5); WBC 5.3 thou/uL (4.0-11.0)
[2020-08-28 06:00] LABS: ALBUMIN 3.2 g/dL (3.4-5.0); CALCIUM 8.5 mg/dL (8.5-10.1); CREATININE 1.3 mg/dL (0.7-1.3); POTASSIUM 4.3 mmol/L (3.5-5.1); TOTAL BILIRUBIN 0.7 mg/dL (0.2-1.0); TOTAL PROTEIN 5.9 g/dL (6.4-8.2)
--- NOTE | 2020-08-28 07:34 | EKG ---
[place] [address] [facility] [employer] [place] [address] ELECTROCARDIOGRAM REPORT Name: SWAPNA FARRELL Room #: 209-[facility] M.R.#: [id number] Admission: 08/27/20 Attend Phys: Sunday Haas MD Discharge: Date of : 38 Report #: [id number] [facility] Test Date: 2020-08-28 Test Time: 07:17:49 Pat Name: SWAPNA FARRELL Department: Room: 209 P Gender: M Press Service Reader: CHANDRAKANT : 1940 Requested By: Sunday Haas Order Number: [id number] MD: Fred Gutierrez Measurements Intervals [place] Rate: 48 P: 40 [place]: 219 QRS: -55 QRSD: 130 T: 95 QT: 500 QTc: 447 Interpretive Statements Sinus bradycardia Atrial premature complexes Nonspecific IVCD with LAD LVH with secondary repolarization abnormality Compared to ECG 08/27/2020 13:06:10 Intraventricular conduction delay now present Left ventricular hypertrophy now present Early repolarization now present Electronically Signed On 08-28-2020 7:34:20 SOLE ROUNDING MACHINE OPERATOR by Fred Gutierrez [email or web address] <ELECTRONICALLY SIGNED> By: Fred Gutierrez MD, [facility] [id number] [phone] Fred Gutierrez MD, [facility] /EPI
[2020-08-28 07:59] VITALS: BP 119/62
[2020-08-28 10:27] VITALS: BP 119/62
[2020-08-28 10:32] VITALS: BP 119/62
== END 2020-08-28 11:45 | disposition home or self-care (01) ==
LOC: CATH 06:31 → 2N 12:52
PROVIDERS: ADMIT Internal Medicine Cardiovascular Disease; ATTEND Internal Medicine Cardiovascular Disease
DX: I25.10 Atherosclerotic heart disease of native coronary artery without angina pectoris (principal); I10 Essential (primary) hypertension; E78.5 Hyperlipidemia, unspecified; I25.5 Ischemic cardiomyopathy; I73.9 Peripheral vascular disease, unspecified; Z79.899 Other long term (current) drug therapy; Z79.82 Long term (current) use of aspirin; Z79.02 Long term (current) use of antithrombotics/antiplatelets

== ENCOUNTER → 2020-10-01 | Outpatient (CLI) | payer OTHER, MEDICARE ==
[~2020-10-01] MED LIST changes: +ASA81BEC PO
== END ==
LOC: SJCVC 12:51
PROVIDERS: ATTEND Internal Medicine Cardiovascular Disease
DX: R94.31 Abnormal electrocardiogram [ECG] [EKG] (principal); I49.9 Cardiac arrhythmia, unspecified; I45.4 Nonspecific intraventricular block; I25.119 Atherosclerotic heart disease of native coronary artery with unspecified angina pectoris; I10 Essential (primary) hypertension; I35.0 Nonrheumatic aortic (valve) stenosis; I25.5 Ischemic cardiomyopathy; I73.9 Peripheral vascular disease, unspecified; K55.1 Chronic vascular disorders of intestine; I65.23 Occlusion and stenosis of bilateral carotid arteries; I77.9 Disorder of arteries and arterioles, unspecified; E78.00 Pure hypercholesterolemia, unspecified; Z95.5 Presence of coronary angioplasty implant and graft; Z95.1 Presence of aortocoronary bypass graft; Z98.890 Other specified postprocedural states; Z88.8 Allergy status to other drugs, medicaments and biological substances; Z79.82 Long term (current) use of aspirin; Z79.899 Other long term (current) drug therapy; Z87.891 Personal history of nicotine dependence; Z82.49 Family history of ischemic heart disease and other diseases of the circulatory system

== ENCOUNTER → 2020-12-28 | Outpatient (CLI) | payer OTHER, MEDICARE | LOC: SJCVC 13:29 | PROVIDERS: ATTEND Internal Medicine Cardiovascular Disease | DX: R94.31 Abnormal electrocardiogram [ECG] [EKG] (principal); I45.4 Nonspecific intraventricular block; I44.0 Atrioventricular block, first degree; R00.1 Bradycardia, unspecified; I25.118 Atherosclerotic heart disease of native coronary artery with other forms of angina pectoris; I10 Essential (primary) hypertension; E78.00 Pure hypercholesterolemia, unspecified; I73.9 Peripheral vascular disease, unspecified; I35.0 Nonrheumatic aortic (valve) stenosis; R07.89 Other chest pain; Z72.89 Other problems related to lifestyle; Z87.891 Personal history of nicotine dependence; Z79.899 Other long term (current) drug therapy; Z79.82 Long term (current) use of aspirin; Z95.1 Presence of aortocoronary bypass graft; Z88.8 Allergy status to other drugs, medicaments and biological substances ==

== ENCOUNTER → 2021-01-07 | Outpatient (CLI) | payer OTHER, MEDICARE | LOC: SJCVC 10:00 | PROVIDERS: ATTEND Internal Medicine Cardiovascular Disease | DX: R94.31 Abnormal electrocardiogram [ECG] [EKG] (principal); I49.1 Atrial premature depolarization; I25.10 Atherosclerotic heart disease of native coronary artery without angina pectoris; I10 Essential (primary) hypertension; I35.0 Nonrheumatic aortic (valve) stenosis; I73.9 Peripheral vascular disease, unspecified; I25.5 Ischemic cardiomyopathy; I77.9 Disorder of arteries and arterioles, unspecified; K55.1 Chronic vascular disorders of intestine; I65.23 Occlusion and stenosis of bilateral carotid arteries; H91.90 Unspecified hearing loss, unspecified ear; E78.00 Pure hypercholesterolemia, unspecified; I31.9 Disease of pericardium, unspecified; Z95.1 Presence of aortocoronary bypass graft; Z95.828 Presence of other vascular implants and grafts; Z87.891 Personal history of nicotine dependence; Z72.89 Other problems related to lifestyle; Z79.82 Long term (current) use of aspirin; Z79.899 Other long term (current) drug therapy; Z88.8 Allergy status to other drugs, medicaments and biological substances; Z95.5 Presence of coronary angioplasty implant and graft ==

== ENCOUNTER → 2021-01-28 | Outpatient (CLI) | payer OTHER, MEDICARE | LOC: SJCVC 13:14 | PROVIDERS: ATTEND Internal Medicine Cardiovascular Disease | DX: R94.31 Abnormal electrocardiogram [ECG] [EKG] (principal); I45.4 Nonspecific intraventricular block; I49.8 Other specified cardiac arrhythmias; I44.0 Atrioventricular block, first degree; R00.1 Bradycardia, unspecified; I25.119 Atherosclerotic heart disease of native coronary artery with unspecified angina pectoris; I42.9 Cardiomyopathy, unspecified; I77.9 Disorder of arteries and arterioles, unspecified; I10 Essential (primary) hypertension; I73.9 Peripheral vascular disease, unspecified; I35.0 Nonrheumatic aortic (valve) stenosis; K55.1 Chronic vascular disorders of intestine; E78.00 Pure hypercholesterolemia, unspecified; I65.23 Occlusion and stenosis of bilateral carotid arteries; I25.5 Ischemic cardiomyopathy; Z95.1 Presence of aortocoronary bypass graft; Z79.82 Long term (current) use of aspirin; Z87.891 Personal history of nicotine dependence; Z72.89 Other problems related to lifestyle; Z79.899 Other long term (current) drug therapy; Z88.8 Allergy status to other drugs, medicaments and biological substances ==

== ENCOUNTER → 2021-03-19 | Outpatient (CLI) | payer OTHER, MEDICARE | LOC: SJCVCIMAG 09:13 | PROVIDERS: ATTEND Internal Medicine Cardiovascular Disease | DX: I70.203 Unspecified atherosclerosis of native arteries of extremities, bilateral legs (principal); K55.1 Chronic vascular disorders of intestine; I77.9 Disorder of arteries and arterioles, unspecified; R00.1 Bradycardia, unspecified; I25.119 Atherosclerotic heart disease of native coronary artery with unspecified angina pectoris; I10 Essential (primary) hypertension; E78.00 Pure hypercholesterolemia, unspecified; I45.4 Nonspecific intraventricular block; I65.23 Occlusion and stenosis of bilateral carotid arteries; Z98.890 Other specified postprocedural states; Z87.891 Personal history of nicotine dependence; Z72.89 Other problems related to lifestyle; Z79.82 Long term (current) use of aspirin; Z79.899 Other long term (current) drug therapy; Z95.1 Presence of aortocoronary bypass graft; Z88.1 Allergy status to other antibiotic agents ==

== ENCOUNTER → 2021-07-16 | Outpatient (CLI) | payer OTHER, MEDICARE | LOC: ULTRA 08:21 | PROVIDERS: ATTEND Internal Medicine | DX: I77.811 Abdominal aortic ectasia (principal); D69.6 Thrombocytopenia, unspecified; R79.89 Other specified abnormal findings of blood chemistry ==